=== PATIENT | male | born 1970 | race Caucasian/White ===

== ENCOUNTER 2017-04-05 01:04 | Emergency (ER) | payer MEDICAID ==
[2017-04-05] MEDS ORDERED: ceFAZolin SODIUM/DEXTROSE,ISO 2 GM/50 ML BAG IV SCH (01:30)
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
[2017-04-05] MEDS ORDERED: ceFAZolin SODIUM 1 GM VIAL ONE (01:37)
[2017-04-05] MEDS ORDERED: LIDOCAINE HCL/EPINEPHRINE 30 ML VIAL IJ ONE (01:40)
[2017-04-05] MEDS ORDERED: NORMAL SALINE 1,000 ML IV ONE ×2 (01:48→01:49)
[2017-04-05 01:59] LABS: Hematocrit 37.6 % (42.0-52.0); Hemoglobin 12.1 gm/dL (13.5-18.0); Mean Cell Volume 97.7 fl (78-100); Mean Corpuscular Hemoglobin 31.4 pg (27-31); Mean Corpuscular Hgb Conc 32.2 g/dl (32-36); Mean Platelet Volume 8.5 fl (6.0-9.5); Platelet Count 196 K/mm3 (150-450); Red Blood Count 3.85 M/mm3 (4.7-6.0); Red Cell Distribution Width 12.8 % (11.5-14.0); White Blood Count 18.7 K/mm3 (4.0-10.5)
[2017-04-05 02:00] LABS: Urine Bilirubin Negative (NEGATIVE); Urine Blood 250 /ul (NEGATIVE); Urine Ketone Negative (NEGATIVE); Urine Nitrite Negative (NEGATIVE); Urine Protein Negative (NEGATIVE); Urine Urobilinogen Normal (NORMAL); Urine pH 5.5 pH (5.0-7.0)
[2017-04-05 02:11] LABS: Prothrombin Time (Patient) 10.7 Seconds (9.0-11.0)
[2017-04-05 02:13] LABS: Albumin * 3.2 gm/dl (3.4-5.0); Anion Gap 14.8 mmol/L (6.8-13.8); BUN/Creatinine Ratio 17.9 (9.0-21.6); Bilirubin, Total 0.3 mg/dL (0.0-1.1); Ca. Corrected For Albumin 7.9 mg/dL (8.4-10.2); Calcium * 7.6 mg/dL (7.9-10.9); Carbon Dioxide 26.5 mmol/L (24-32.6); Potassium 4.3 mmol/L (3.4-4.6); Total Protein 5.9 gm/dL (6.2-8.2)
[2017-04-05 02:14] LABS: Cocaine Ur Negative (NEGATIVE); INR 1.07 INR (0.90-1.10); Total Cells Counted 100; Urine Barbiturate Negative (NEGATIVE); Urine Benzodiazepines Negative (NEGATIVE); Urine Opiates Negative (NEGATIVE); Urine PCP Negative (NEGATIVE)
[2017-04-05 02:15] LABS: Urine THC Positive (NEGATIVE)
[2017-04-05 02:17] LABS: Urine Appearance Slightly Cloudy; Urine Bacteria 1+; Urine Color Yellow; Urine WBC None Seen /hpf (0-5)
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
[2017-04-05] MEDS ORDERED: MORPHINE SULFATE 2 MG/ML DISP.SYRIN IV ONE (02:23)
[2017-04-05] MEDS ORDERED: MORPHINE SULFATE 2 MG/ML DISP.SYRIN ONE (02:26)
[2017-04-05 02:29] LABS: Atypical (Reactive) Lymph 1 % (0-2); Band 13 % (0-2.0); Immature Granulocyte 1 (0-1); Lymphocyte 8 % (20-51); Monocyte 6 % (0-9); Neutrophil 71 % (42-75); Neutrophil # 13.3 K/mm3 (1.3-6.0)
[2017-04-05 02:30] LABS: Dohle Bodies Trace; Platelet Estimate Normal (NORMAL); Toxic Granulation Trace
[2017-04-05 04:26] VITALS: BP 123/78
== END 2017-04-05 03:32 | disposition short-term general hospital (02) ==
LOC: ER 01:04
PROC: 0T9B70Z Drainage of Bladder with Drainage Device, Via Natural or Artificial Opening (ICD-10-PCS; principal; 2017-04-05)
PROC: 0JQ00ZZ Repair Scalp Subcutaneous Tissue and Fascia, Open Approach (ICD-10-PCS; 2017-04-05)
DX: S12.9XXA Fracture of neck, unspecified, initial encounter (principal); S52.501B Unspecified fracture of the lower end of right radius, initial encounter for open fracture type I or II; S43.004A Unspecified dislocation of right shoulder joint, initial encounter; V29.9XXA Motorcycle rider (driver) (passenger) injured in unspecified traffic accident, initial encounter; I60.9 Nontraumatic subarachnoid hemorrhage, unspecified; F17.200 Nicotine dependence, unspecified, uncomplicated; S01.01XA Laceration without foreign body of scalp, initial encounter
CPT/HCPCS: 12004; 36415; 51702; 70450; 70486; 71010; 72125; 73020; 73070; 73100; 73560; 80053; 80307; 81001; 85025; 85610; 86850; 86900; 87086; 96365; 96375; 99283; G0481